=== PATIENT | male | born 1965 | race Caucasian/White ===

== ENCOUNTER → 2016-04-27 | Outpatient (CLI) | payer MEDICAID ==
[~2016-04-27] MED LIST: COUMADIN5 M1 IV; GABAPENTIN800 MG PO; LISINOPRIL10 MG PO; LISINOPRIL20 MG PO; LOVENOX 10100 MG/11 SC; METOPROLOL TAR100 MG PO; PERCOCET 10 MG1 EACH PO; PERCOCET 325 MG1 TA3 PO; PERCOCET 325 MG1 TA4 PO; PREDNISONE20 MG PO; TIZANIDINE HCL4 MG OR
[2016-04-27 13:38] LABS: HEMOGLOBIN 12.2 g/dL (14.1-18.0); LYMPH # 1.2 K/mm3 (0.7-4.5); LYMPH % 18.3 % (10-50)
[2016-04-27 13:53] LABS: BUN 12 mg/dL (7-18)
[2016-04-27 13:56] LABS: GFR (ESTIMATED) 64 ML/MIN (>60)
== END ==
LOC: CARL-LAB 11:44
PROVIDERS: Orthopaedic Surgery Adult Reconstructive Orthopaedic Surgery
DX: Z47.1 Aftercare following joint replacement surgery (principal); Z45.2 Encounter for adjustment and management of vascular access device; R26.9 Unspecified abnormalities of gait and mobility; M62.81 Muscle weakness (generalized); I10 Essential (primary) hypertension

== ENCOUNTER → 2016-05-17 | Outpatient (CLI) | payer MEDICAID | LOC: ACC 13:07 | DX: I82.622 Acute embolism and thrombosis of deep veins of left upper extremity (principal) | CPT/HCPCS: G0463 ==

== ENCOUNTER → 2016-05-18 | Outpatient (CLI) | payer MEDICAID ==
[2016-05-18 13:19] LABS: LYMPH % 23.8 % (10-50)
[2016-05-18 13:43] LABS: BUN 10 mg/dL (7-18)
[2016-05-18 13:44] LABS: GFR (ESTIMATED) 58 ML/MIN (>60)
== END ==
LOC: CARL-LAB 11:02
PROVIDERS: Orthopaedic Surgery Adult Reconstructive Orthopaedic Surgery
DX: Z47.1 Aftercare following joint replacement surgery (principal); R26.9 Unspecified abnormalities of gait and mobility; M26.81 Anterior soft tissue impingement; I10 Essential (primary) hypertension

== ENCOUNTER → 2016-05-21 | Outpatient (CLI) | payer MEDICAID | LOC: COP 12:19 | DX: I82.622 Acute embolism and thrombosis of deep veins of left upper extremity (principal) | CPT/HCPCS: G0463 ==

== ENCOUNTER 2016-05-24 10:04 | Outpatient (CLI) | payer MEDICAID | END 2016-05-24 11:32 | LOC: ACC 10:04 | DX: I82.622 Acute embolism and thrombosis of deep veins of left upper extremity (principal); Z79.01 Long term (current) use of anticoagulants; Z51.81 Encounter for therapeutic drug level monitoring | CPT/HCPCS: G0463 ==

== ENCOUNTER → 2016-07-07 | Outpatient (CLI) | payer MEDICAID ==
[2016-07-07 21:06] LABS: AMPHETAMINES/METAMPHETAMINES NEGATIVE ng/mL (<1000)
== END ==
LOC: LAB 16:29
PROVIDERS: Emergency Medicine
DX: Z79.899 Other long term (current) drug therapy (principal)

== ENCOUNTER → 2017-04-11 | Outpatient (CLI) | payer MEDICAID ==
[2017-04-11 17:53] LABS: HEMOGLOBIN 14.4 g/dL (14.1-18.0); LYMPH # 1.1 K/mm3 (0.7-4.5); LYMPH % 20.6 % (10-50)
[2017-04-11 18:30] LABS: BUN 7 mg/dL (7-18)
[2017-04-11 18:33] LABS: GFR (ESTIMATED) 71 ML/MIN (>60)
[2017-04-13 10:39] LABS: HBsAg Screen Negative (Negative); Hep A Ab, IgM Negative (Negative); Hep B Core Ab, IgM Negative (Negative); Hep C Virus Ab <0.1 (0.0-0.9)
[2017-04-14 06:39] LABS: Vitamin D, 25-Hydroxy 41.8 ng/mL (30.0-100.0)
== END ==
LOC: LAB 17:28
PROVIDERS: Nurse Practitioner Family
DX: R53.83 Other fatigue (principal)